=== PATIENT | female | born 1985 | race American Indian/Alaskan Native ===

== ENCOUNTER 2020-06-18 11:56 | Emergency (ER) | payer SELFPAY ==
[2020-06-18] MEDS ORDERED: ONDANSETRON 4 MG/2 ML INJ IV ONE (13:12)
[2020-06-18] MEDS ORDERED: MORPHINE 4 MG/1 ML INJ IV ONE (13:12)
--- NOTE | 2020-06-18 13:20 | Emergency Department Report ---
ED Female HPI - General Chief complaint: Abdominal Pain Stated complaint: R SIDE PAIN Time Seen by Provider: 06/18/20 13:08 Source: patient Mode of arrival: Ambulatory Limitations: No Limitations - History of Present Illness Initial comments: cc: "I have had kidney stones before." HPI: This is a 35 yo female with hx of 3-4 episodes of renal colic who presents with severe right flank pain radiating to RLQ. Sharp stabbing sensation. Gradual onset 1 1/2 weeks ago. Pain has worsened in severity over the past 1.5 weeks. Patient was evaluated by her PCP Dr. Torres Doty who prescribed ciprofloxacin, metronidazole and Zofran. Urinalysis was abnormal. Patient states that is a possibility. MD Complaint: other (Right flank pain) -: Gradual Location: other (Right flank pain right lower quadrant pain) Severity: severe Severity scale (0 -10): 10 Quality: sharp, stabbing Consistency: constant Improves with: none Worsens with: none - Related Data Previous Rx's Medication Instructions Recorded Last Taken Type HYDROcodone/APAP 5-325 [Greenwood 1 each PO Q6HR PRN #15 tablet 06/18/20 Unknown Rx 5/325] Ibuprofen [Motrin 400 MG tab] 400 mg PO Q8H PRN #15 tablet 06/18/20 Unknown Rx Tamsulosin [Flomax] 0.4 mg PO QDAY 7 Days #7 cap 06/18/20 Unknown Rx Allergies Allergy/AdvReac Type Severity Reaction Status Date / Time No Known Allergies Allergy Unverified 06/18/20 12:12 ED Review of Systems ROS: Stated complaint: R SIDE PAIN Other details as noted in HPI Comment: All other systems reviewed and negative Constitutional: denies: fever, malaise ED Past Medical Hx - Past Medical History Previous Medical History?: Yes Hx Kidney Stones: Yes - Surgical History Past Surgical History?: Yes Additional Surgical History: Lithotripsy and Cystoscopy - Social History Smoking Status: Current Every Day Smoker Substance Use Type: Alcohol, Marijuana - Medications Home Medications: Home Medications Medication Instructions Recorded Confirmed Last Taken Type HYDROcodone/APAP 5-325 [Green[place] 1 each PO Q6HR PRN #15 tablet 06/18/20 Unknown Rx 5/325] Ibuprofen [Motrin 400 MG tab] 400 mg PO Q8H PRN #15 tablet 06/18/20 Unknown Rx Tamsulosin [Flomax] 0.4 mg PO QDAY 7 Days #7 cap 06/18/20 Unknown Rx ED Physical Exam - General Limitations: No Limitations General appearance: alert, in no apparent distress, other (Nontoxic appears slightly uncomfortable) - Head Head exam: Present: atraumatic, normocephalic - Eye Eye exam: Present: normal appearance - ENT ENT exam: Present: mucous membranes moist - Neck Neck exam: Present: normal inspection, full ROM - Respiratory Respiratory exam: Present: normal lung sounds bilaterally. Absent: respiratory distress, wheezes, rales, rhonchi - Cardiovascular Cardiovascular Exam: Present: regular rate, normal rhythm, normal heart sounds. Absent: systolic murmur, diastolic murmur, rubs, gallop - GI/Abdominal GI/Abdominal exam: Present: soft, normal bowel sounds. Absent: distended, tenderness, guarding, rebound - Extremities Exam Extremities exam: Present: normal inspection - Back Exam Back exam: Present: normal inspection, full ROM. Absent: tenderness, CVA tenderness (R), CVA tenderness (L), muscle spasm, paraspinal tenderness, vertebral tenderness, rash noted - Neurological Exam Neurological exam: Present: alert, oriented X3 - Psychiatric Psychiatric exam: Present: normal affect, normal mood - Skin Skin exam: Present: warm, dry, intact, normal color. Absent: rash ED Course Vital Signs 06/18/20 12:14 Temperature 98.7 F Pulse Rate 72 Respiratory 16 Rate Blood Pressure 140/90 O2 Sat by Pulse 100 Oximetry ED Medical Decision Making - Radiology Data Radiology results: report reviewed - Medical Decision Making Renal colic due to 6 mm distal ureteral stone. Patient appears comfortable after treatment emergency department. I have prescribed Flomax ibuprofen and [place]wood. Referred patient to her previous urologist. I suspect patient will pass stone now in the distal region. She understands return for fever worsening pain uncontrollable pain. Critical care attestation.: If time is entered above; I have spent that time in minutes in the direct care o f this critically ill patient, excluding procedure time. ED Disposition Clinical Impression: Renal colic on right side, Kidney stone on right side Disposition: DC-01 TO HOME OR SELFCARE Is pt being admited?: No Does the pt Need Aspirin: No Condition: Stable Instructions: Abdominal Pain (ED), Kidney Stones, [id number] Prescriptions: Tamsulosin [Flomax] 0.4 mg PO QDAY 7 Days #7 cap Ibuprofen [Motrin 400 MG tab] 400 mg PO Q8H PRN #15 tablet PRN Reason: Pain , Severe (7-10) HYDROcodone/APAP 5-325 [Greenwood 5/325] 1 each PO Q6HR PRN #15 tablet PRN Reason: Pain Referrals: SUNDAY FOSTER MD [Staff Physician] - 3-5 Days
--- NOTE | 2020-06-18 15:11 | Cat Scan Report ---
CT ABDOMEN AND PELVIS WITHOUT CONTRAST INDICATION / CLINICAL INFORMATION: right flank pain hx of kidney stone. TECHNIQUE: Axial CT images were obtained through the abdomen and pelvis without IV contrast. All CT scans at [facility] location are performed using CT dose reduction for ALARA by means of automated exposure control. COMPARISON: 06/21/2009 FINDINGS: LOWER CHEST: No significant abnormality. HEPATOBILIARY: Mild hepatomegaly at 17.5 cm. No focal hepatic lesion. No significant biliary ductal d ilatation. PANCREAS/SPLEEN/ADRENALS: No significant abnormality. GENITOURINARY: Multiple bilateral renal stones, approximately 2 right and 5 left. Largest measures 8 mm and is at the inferior right renal pole. There is mild-moderate right-sided hydroureteronephrosis with a 6 mm stone in the right hemipelvis, possibly in the course of the ureter, however this is diff icult to discern given the lack of intraperitoneal fat. Bladder demonstrates no significant abnormali ty. GASTROINTESTINAL/MESENTERY: No significant abnormality. RETROPERITONEUM: No significant adenopathy. REPRODUCTIVE ORGANS: No significant abnormality. VASCULAR: No significant abnormality. BODY WALL: No significant abnormality. SKELETAL SYSTEM: No significant abnormality. IMPRESSION: 1. Mild-moderate right-sided obstructive uropathy with a 6 mm stone in the right hemipelvis, likely i n the distal right ureter, however this is difficult to discern on this examination. 2. Bilateral nonobstructing nephrolithiasis. 3. Mild hepatomegaly. Signer Name: Hunter Gutierrez MD Signed: 06/18/2020 3:07 PM Workstation Name: [id number]
[2020-06-18] MEDS ORDERED: oxyCODONE /ACETAMINOPHEN 5-325MG TAB PO ONE (15:15)
[2020-06-18] MEDS ORDERED: KETOROLAC 30 MG/1 ML INJ IV ONE (15:18)
[2020-06-18] MEDS ORDERED: TAMSULOSIN 0.4 MG CAP PO ONE (15:30)
[2020-06-18 15:45] LABS: Bacteria,Urine 1+ /HPF (Negative); Bilirubin,Urine NEG (Negative); Blood,Urine LG (Negative); Color,Urine Yellow (Yellow); Mucus,Urine 1+ /HPF; Urobilinogen,Urine < 2.0 mg/dL (<2.0)
[2020-06-18 15:51] LABS: RBC,Urine > 182.0 /HPF (0.0-6.0)
[2020-06-18 15:55] VITALS: BP 122/82
[2020-06-18 15:55] LABS: HCG Qualitative,Urine Negative (Negative)
== END 2020-06-18 15:55 | disposition home or self-care (01) ==
LOC: ED 11:56
DX: N23 Unspecified renal colic (principal); N20.0 Calculus of kidney; F17.200 Nicotine dependence, unspecified, uncomplicated; F12.90 Cannabis use, unspecified, uncomplicated; Z79.899 Other long term (current) drug therapy; Z98.890 Other specified postprocedural states
CPT/HCPCS: 36415; 74176; 81001; 81025; 84703; 87086; 96374; 96375; 99284; J1885; J2270; J2405